=== PATIENT | male | born 1985 | race Caucasian/White ===

== ENCOUNTER 2018-11-22 11:14 | Inpatient (IN) | payer SELFPAY ==
[2018-11-22 11:14] VITALS: BP 142/85; PULSE 96; RESP 14; TEMP 36.7; O2SAT 97; BMI 43.6
[2018-11-22 11:56] LABS: Absolute Lymphocyte Count 2.52 X10^3/ul (0.83-4.51); Absolute Neutrophil Count 9.4 X10^3/uL (2.0-7.7); Basophil# 0.02 X10^3/uL; Basophil% 0.2 % (0-1); Eosinophil# 0.22 X10^3/uL; Eosinophils% 1.7 % (0-5); Hematocrit 43.7 % (40-54); Lymphocyte # 2.52 X10^3/ul (4.0); Mean Corpuscular Hgb 26.8 pg (27.0-32.0); Mean Corpuscular Volume 83.7 fL (80-94); Mean Platelet Vol. 9.8 fl (6.2-12.0); Monocyte# 1.03 X10^3/uL; Monocyte% 7.8 % (0-10); Neutrophil # 9.42 X10^3/uL (2.7-7.7); Neutrophil % 71.1 % (47-70); POSITIVE COUNT NO; POSITIVE DIFFERENTIAL NO; POSITIVE MORPHOLOGY NO; Platelet Count 256 K/mm3 (150-450); RBC Distribution Width CV 15.1 % (11.6-14.6); RBC Distribution Width SD 46.1 fl (35.1-43.9); Red Blood Count 5.22 M/mm3 (4.6-6.2); White Blood Count 13.2 K/mm3 (4.4-11.0)
[2018-11-22 12:11] LABS: Anion Gap 4 (5-15); BUN 15 mg/dL (7-18); BUN/Creat Ratio 15.8 RATIO (10-20); Calcium,Total 8.8 mg/dL (8.5-10.1); Chloride 107 mmol/L (98-107); Creatinine, Serum 0.95 mg/dL (0.70-1.30); EST Glomerular Filtration Rate 97 mL/min (>60); Est Glom Filt Rate - Afr Amer 117 mL/min (>60); Estimated Creatinine Clearance 128.59 ml/min; Glucose 129 mg/dL (74-106); Potassium 3.7 mmol/L (3.5-5.1); Sodium Level 140 mmol/L (136-145)
--- NOTE | 2018-11-22 13:26 | ED.VIS.GEN ---
History of Present Illness Chief Complaint: Cellulitis Associated Symptoms: 3-year-old male presents with left leg Narrative: 33-year-old male presents with what he describes as a pimple on his left leg anteriorly for the past week. This morning he developed erythema and warmth of his entire leg. It has gradually become worse since then. No associated fever. No history of diabetes. No previous history of cellulitis. Better with elevations. Past Medical History - Allergies and Home Meds Allergies/Adverse Reactions: Allergies No Known Allergies Allergy (Verified 11/22/18 11:17) Primary Care Physician: Care Physician,No Primary [Primary Care Provider] - Past Medical History: None Smoking Status: Current every day smoker Review of Systems General: Denies: Chills, Fever, Sweats Eyes: Denies: Visual changes - bilaterally, Diplopia ENT: Denies: Rhinorrhea, Sore throat Cardiovascular: Denies: Chest pain, Palpitations Respiratory: Denies: Dyspnea, Cough, Dyspnea on exertion Gastrointestinal: Denies: Abdominal pain, Nausea, Vomiting, Diarrhea, Melena, Hematochezia Genitourinary: Denies: Dysuria, Hematuria, Frequency Musculoskeletal: Denies: Back pain, Extremity Pain Skin: Reports: Rash, Wounds Neurological: Denies: Headache, Weakness, Numbness Physical Exam Vital Signs/Narrative: Vital Signs Temp Pulse Resp BP Pulse Ox 11/22/18 11:14 98.1 F 96 14 142/85 H 97 General: Well nourished, Well developed, No Acute Distress Head: Normocephalic, Atraumatic Eyes: Perrl, EOMI ENT: Moist mucous membranes, No rhinorrhea Neck: Supple, Nontender Cardiovascular: Regular rate, Regular rhythm, No murmurs Respiratory: No distress, CTA bilaterally, Chest nontender Abdomen: Soft, Nontender, Nondistended, Normal bowel sounds Back: Nontender, Normal Inspection Extremities: Nontender, No edema Skin: Rash, - - He has erythema and warmth noted from the distal thigh to his foot. There is a raised fluctuant area approximately 4 cm x 5 cm just distal to the left knee but not involving the joint. No streaks of lymphangitis. No overlying crepitus. The posterior aspect of his leg appears normal and this mostly only involves the anterior aspect. Neurological: Alert, Oriented x3, Cranial nerves II-XII grossly intact, Normal Strength, Normal Sensation Psychological: Normal affect, Normal Mood Diagnostic/Tx/Re-eval - Medical Decision Making He does have a slight leukocytosis. Glucose not significantly elevated. He has no history of diabetes. His cellulitis is fairly sizable, involving his entire left leg but sparing the foot. It extends just proximal to the knee. No associated streaks of lymphangitis. No proximal lymphadenopathy. No crepitus. He was outlined and observed here. No rapid progression to suggest necrotizing fasciitis. He did have a fairly localized raised and fluctuant area proximally. It is somewhat distal to the prepatellar bursa. It appeared to be an abscess. I obtained verbal informed consent and then anesthetized using 5 cc of lidocaine with epinephrine locally infiltrated. I then made a 3 cm x 3 cm cruciate incision using a #11 scalpel. I broke up loculations using a curved Julia forcep and irrigated the area using 50 cc of normal saline and a syringe. I expressed 10-15 cc of foul-smelling purulent material. I sent it for a culture and a rapid MRSA PCR. I then placed 1/4 inch drain packing approximately 6 cm. He tolerated it well. No immediate complications. Given the large size of his cellulitis, I do feel he meets criteria for hospitalization and IV antibiotics. He was treated with vancomycin and Zosyn here. I discussed the case with the hospitalist at the bedside. ED Disposition - Plan for ED Patient: Diagnosis: Left leg cellulitis, Abscess of left leg Referrals: Care Physician,No Primary [Primary Care Provider] -
--- NOTE | 2018-11-22 13:37 | RAD_ITS ---
STUDY: X-RAY - LEFT TIBIA AND FIBULA REASON FOR EXAM: Male, 33 years old. Lower extremity swelling TECHNIQUE: 2 view(s) of the tibia and fibula were obtained. COMPARISON: None. FINDINGS: Normal visualized tibia. Normal visualized fibula. Knee joint an ankle joint are in normal alignment. No significant degenerative change. Diffuse subcutaneous edema of the lower leg. No subcutaneous gas loculation or ulceration. RAD/Tibia & Fibula 2 Views IMPRESSION: 1. Left lower extremity edema 2. No underlying bony or joint abnormality. Electronically Signed: Joby Mason MD at 4:55 EDT Tel , Service support ,
--- NOTE | 2018-11-22 13:43 | HP.PCM_ITS ---
Problem List (1) Left leg cellulitis Status: Acute (2) Abscess of left leg Status: Acute History of Present Illness Date of Admission: 11/22/18 Chief Complaint: Left leg cellulitis for 3 days The patient is a 33 year old M with no significant past medical history came to ED with left leg swelling, pain and tenderness for last 3 days. This started with a small pimple in anterior part of left leg, below knee joint and then shape of swelling, erythema, pain and then spread downwards up to ankle joint. Patient denies numbness, tingling or paresthesia or problem in bending the knee joint or locking sensation. He denies fever/chills. He fell down on left knee in August but did not had fracture/dislocation or procedure done. He took Motrin at home and went to urgent care from where he was sent to ED. [] He denies history of hypertension or diabetes mellitus type 2. Past Medical History Allergies No Known Allergies Allergy (Verified 11/22/18 11:17) Home Medications: Ambulatory Orders Medication Instructions Recorded Ibuprofen 800 mg PO BID 11/22/18 Smoking Status: Current every day smoker - *Family History Paternal History Items: Hypertension Review of Systems Constitutional: Denies: Chills, Fever, Weight Change HEENT: Denies: Head Aches, Sinus Congestion, Sinus Drainage Cardiovascular: Denies: Chest Pain, Palpitations Respiratory: Denies: Cough, Shortness of breath at rest, Sputum production Gastrointestinal: Denies: Abdominal Pain, Nausea, Vomiting Genitourinary: Denies: Dysuria Musculoskeletal: Reports: Leg Pain, Muscle pain. Denies: Joint Pain, Joint Tenderness Skin: Reports: Rash, Skin Changes, - - There is an abscess anteriorly, distal to knee joint which was drained in ED. Denies: Wounds Neurological: Denies: Numbness, Tingling, Focal weakness Psychiatric: Denies: Anxiety, Depression, Homicidal Ideations, Suicidal Ideations Hematologic/ Lymphatic: Denies: Easy Bruising, Easy Bleeding VTE Information - Inpt Only VTE Present on Admission: No VTE Mechan Device Prophylaxis: None VTE Pharm Prophylaxis ordered?: Yes Patient Problems: Active and Suspected Problems Left leg cellulitis (Acute) Abscess of left leg (Acute) - Physical Exam General: Alert, Oriented x3, Cooperative HEENT: Atraumatic, PERRLA, EOMI, Normocephalic Oral: Moist Mucosa Neck: Supple, No JVD, Negative Carotid Bruits Lungs: Clear to auscultation, No rhonchi, No wheeze, No rales, Diminished - Air entry is diminished bilaterally probably secondary to obesity Cardiovascular: Regular rate, Regular Rhythm, Normal S1, Normal S2, No murmurs Abdomen: Bowel Sounds Present, Soft, Non Tender Extremities: No edema, Capillary Refill Less than 3 Seconds Skin: Skin Tear - Diffuse erythematous rash from knee joint to ankle joint with induration and swelling, Incision - Patient had incision and drainage of abscess of 4 x 5 cm, distal to left knee joint and prepatellar bursa. It seems is not involving the knee joint. Musculoskeletal: No Tenderness to Palpation of Joints or Extremities, - - The patient is able to flex and extend the knee. Lymphatic: No Cervical, Supraclavicular, or Inguinal Adenopathy Neurological: Cranial nerves II-XII grossly intact, Deep Tendon Reflexes 2+/4 and Symmetrical, Neuro grossly intact Psych/Mental Status: Normal Affect, Appropriate Vital Signs Temp Pulse Resp BP Pulse Ox 98.1 F 96 14 142/85 H 97 11/22/18 11:14 11/22/18 11:14 11/22/18 11:14 11/22/18 11:14 11/22/18 11:14 Oxygen Delivery Method Room Air Weight: 340 lb Body Mass Index (BMI) 43.6 Laboratory Tests Past 24 Hrs 11/22/18 11/22/18 11/22/18 11:40 11:40 13:15 WBC 13.2 H RBC 5.22 Hgb 14.0 Hct 43.7 MCV 83.7 MCH 26.8 L MCHC 32.0 RDW 15.1 H RDW Differential 46.1 H Plt Count 256 MPV 9.8 Immature Gran % (Auto) 0.200 Neut % (Auto) 71.1 H Lymph % (Auto) 19.0 [place] % (Auto) 7.8 Eos % (Auto) 1.7 Baso % (Auto) 0.2 Absolute Neuts (auto) 9.4 H Absolute Lymphs (auto) 2.52 Total Counted Not Reportable Sodium 140 Potassium 3.7 Chloride 107 Carbon Dioxide 29.0 Anion Gap 4 L BUN 15 Creatinine 0.95 Estim Creat Clear Calc 128.59 Est GFR (MDRD) Af Amer 117 Est GFR (MDRD) Non-Af 97 BUN/Creatinine Ratio 15.8 Glucose 129 H Calcium 8.8 S.aureus Protein A PCR Pending MRSA (PCR) Pending Assessment/Plan All Active Problems Left leg cellulitis (Acute) Abscess of left leg (Acute) The patient is a 33 year old M with no significant past medical history came to ED with left leg swelling, pain and tenderness for last 3 days. This started with a small pimple in anterior part of left leg, below knee joint and then shape of swelling, erythema, pain and then spread downwards up to ankle joint. Patient denies numbness, tingling or paresthesia or problem in bending the knee joint or locking sensation. He denies fever/chills. He fell down on left knee in August but did not had fracture/dislocation or procedure done. He took Motrin at home and went to urgent care from where he was sent to ED. [] He denies history of hypertension or diabetes mellitus type 2. 1. Left leg cellulitis with abscess distal to knee joint status post incision and drainage in ED: Patient is being admitted on regular MedSurg floor. Started on IV vancomycin in the ED. We will change to IV cefazolin 1 g every 8 hourly. Abscess fluid has been sent for culture including MRSA. Blood cultures x2 ordered. Left lower extremity elevation. Patient has leukocytosis. CBC and BMP tomorrow a.m. Left leg tibia-fibula x-ray ordered. Anti-Inflammatory pain control. 2. Hyperglycemia: BMP shows glucose 129. A1c tomorrow a.m. 3. Morbid obesity: Weight reduction counseling done. Code Visit Inpatient E&M: 88768 Init Hosp L3
[2018-11-22 14:16] VITALS: BMI 44.1; BMI 44.2
--- NOTE | 2018-11-22 14:25 | NURSING ---
Dr. Chilel in to see pt- states that he was asked by pt's brother to check in on pt. Xrays in progress at bedside. Dr. Chilel states that dry dressing should be placed on and that ok to leave packing for 2 days and then may not need anymore following that.
[2018-11-22 14:30] VITALS: BP 142/88; PULSE 81; RESP 18; TEMP 36.8; O2SAT 100
--- NOTE | 2018-11-22 14:40 | NURSING ---
pt did not have a flu vaccine- states he does not get them.
[2018-11-22] MEDS: 0.9% Normal Saline 1,000 ML 75 ML IV (15:04)
[2018-11-22] MEDS: Ibuprofen 600 MG Tablet PO (15:13)
[2018-11-22] MEDS: Famotidine 20 MG Tablet PO (15:14)
[2018-11-22] MEDS: Enoxaparin 40 MG/0.4 ML Syringe SC (15:14)
[2018-11-22 15:23] LABS: M R Staph aureus DNA By PCR Negative (Negative); Probe Check PASS; Specimen Processing Control PASS; Staph aureus DNA By PCR POSITIVE (Negative)
[2018-11-22] MEDS: Cefazolin 1 GM/50 ML BAG IV ×2 (16:30→22:05)
[2018-11-22 20:20] VITALS: BP 151/73; PULSE 88; RESP 14; TEMP 37.1; O2SAT 98
[2018-11-23 02:43] VITALS: BP 143/62; PULSE 87; RESP 14; TEMP 37.4; O2SAT 97
[2018-11-23] MEDS: Acetaminophen 325 MG Tablet 650 MG PO (02:46)
[2018-11-23] MEDS: Ibuprofen 600 MG Tablet PO ×3 (05:13→22:22)
[2018-11-23] MEDS: Cefazolin 1 GM/50 ML BAG IV ×3 (05:13→22:22)
[2018-11-23] MEDS: 0.9% Normal Saline 1,000 ML 75 ML IV ×2 (05:14→17:49)
[2018-11-23 08:06] VITALS: BP 127/68; PULSE 75; RESP 16; TEMP 36.5; O2SAT 98
[2018-11-23 08:10] VITALS: PULSE 76
[2018-11-23 08:13] LABS: Absolute Lymphocyte Count 2.64 X10^3/ul (0.83-4.51); Absolute Neutrophil Count 8.5 X10^3/uL (2.0-7.7); Basophil# 0.04 X10^3/uL; Basophil% 0.3 % (0-1); Eosinophil# 0.39 X10^3/uL; Hematocrit 39.6 % (40-54); Hemoglobin 12.3 g/dl (13.0-16.5); Lymphocyte # 2.64 X10^3/ul (4.0); Lymphocyte % 20.1 % (19-41); Mean Corp Hgb Conc 31.1 g/gl (32-36); Mean Corpuscular Hgb 26.9 pg (27.0-32.0); Mean Corpuscular Volume 86.5 fL (80-94); Mean Platelet Vol. 9.8 fl (6.2-12.0); Monocyte# 1.55 X10^3/uL; Monocyte% 11.8 % (0-10); Neutrophil # 8.51 X10^3/uL (2.7-7.7); Neutrophil % 64.6 % (47-70); POSITIVE DIFFERENTIAL YES; Platelet Count 248 K/mm3 (150-450); RBC Distribution Width CV 15.2 % (11.6-14.6); RBC Distribution Width SD 48.5 fl (35.1-43.9); Red Blood Count 4.58 M/mm3 (4.6-6.2); White Blood Count 13.2 K/mm3 (4.4-11.0)
[2018-11-23 08:14] LABS: Differential Indicated SCAN CRITERIA MET; POSITIVE COUNT NO; POSITIVE MORPHOLOGY NO
[2018-11-23 08:18] LABS: Anion Gap 5 (5-15); BUN 13 mg/dL (7-18); BUN/Creat Ratio 14.2 RATIO (10-20); Calcium,Total 8.5 mg/dL (8.5-10.1); Chloride 111 mmol/L (98-107); Creatinine, Serum 0.92 mg/dL (0.70-1.30); EST Glomerular Filtration Rate 101 mL/min (>60); Est Glom Filt Rate - Afr Amer 122 mL/min (>60); Estimated Creatinine Clearance 132.78 ml/min; Glucose 99 mg/dL (74-106); Potassium 3.9 mmol/L (3.5-5.1); Sodium Level 142 mmol/L (136-145)
[2018-11-23 08:30] LABS: Differential Comment SCANNED
--- NOTE | 2018-11-23 08:39 | PCM.PN.SRG ---
Patient Problems: Active and Suspected Problems Left leg cellulitis (Acute) Abscess of left leg (Acute) Subjective: I saw the patient this morning and yesterday afternoon. The patient reports he is not having pain as long as he is not standing on it. - Physical Exam General: Alert, Oriented x3 Neck: No JVD Extremities: - - Cellulitis receding in the left lower extremity. Purulent drainage continues Musculoskeletal: No Muscle Wasting Vital Signs Temp Pulse Resp BP Pulse Ox 97.7 F L 75 16 127/68 H 98 11/23/18 08:06 11/23/18 08:06 11/23/18 08:06 11/23/18 08:06 11/23/18 08:06 Oxygen Delivery Method Room Air Weight: 344 lb 5.793 oz Body Mass Index (BMI) 44.1 Intake and Output for Last 24 Hours 11/21/18 11/22/18 11/23/18 23:59 23:59 23:59 Intake Total 1093 / 1093 1622 / 1622 Balance 1093 / 1093 1622 / 1622 Microbiology Past 72 Hours 11/22/18 13:15 Gram Stain - Final Wound - Leg, Left Laboratory Tests Past 24 Hrs 11/22/18 11/22/18 11/22/18 11:40 11:40 13:15 WBC 13.2 H RBC 5.22 Hgb 14.0 Hct 43.7 MCV 83.7 MCH 26.8 L MCHC 32.0 RDW 15.1 H RDW Differential 46.1 H Plt Count 256 MPV 9.8 Immature Gran % (Auto) 0.200 Neut % (Auto) 71.1 H Lymph % (Auto) 19.0 [place] % (Auto) 7.8 Eos % (Auto) 1.7 Baso % (Auto) 0.2 Absolute Neuts (auto) 9.4 H Absolute Lymphs (auto) 2.52 Total Counted Not Reportable Differential Comment Sodium 140 Potassium 3.7 Chloride 107 Carbon Dioxide 29.0 Anion Gap 4 L BUN 15 Creatinine 0.95 Estim Creat Clear Calc 128.59 Est GFR (MDRD) Af Amer 117 Est GFR (MDRD) Non-Af 97 BUN/Creatinine Ratio 15.8 Glucose 129 H Hemoglobin A1c Calcium 8.8 S.aureus Protein A PCR POSITIVE H MRSA (PCR) Negative 11/23/18 11/23/18 11/23/18 06:47 06:47 06:47 WBC 13.2 H RBC 4.58 L Hgb 12.3 L Hct 39.6 L MCV 86.5 MCH 26.9 L MCHC 31.1 L RDW 15.2 H RDW Differential 48.5 H Plt Count 248 MPV 9.8 Immature Gran % (Auto) 0.200 Neut % (Auto) 64.6 Lymph % (Auto) 20.1 [place] % (Auto) 11.8 H Eos % (Auto) 3.0 Baso % (Auto) 0.3 Absolute Neuts (auto) 8.5 H Absolute Lymphs (auto) 2.64 Total Counted Not Reportable Differential Comment SCANNED Sodium 142 Potassium 3.9 Chloride 111 H Carbon Dioxide 26.0 Anion Gap 5 BUN 13 Creatinine 0.92 Estim Creat Clear Calc 132.78 Est GFR (MDRD) Af Amer 122 Est GFR (MDRD) Non-Af 101 BUN/Creatinine Ratio 14.2 Glucose 99 Hemoglobin A1c 6.0 Calcium 8.5 S.aureus Protein A PCR MRSA (PCR) Medical Necessity - Tobacco Use Smoking Status: Current every day smoker Assessment/Plan All Active Problems Left leg cellulitis (Acute) Abscess of left leg (Acute) 33-year-old male with left lower extremity abscess and cellulitis 1. I examined the patient this morning and yesterday. There is less cellulitis today and it is receding from the margins. He still has significant cellulitis and he is still having purulent drainage from the wound. I will plan to change the packing tomorrow and irrigated and see how he responds to the IV antibiotics. Culture does show staph. Patient is not febrile and his white count is stable. Continue IV antibiotics. Jimenez Chilel MD Pager: [facility] [address] [place] [address] [facility] [place], [address] [place] [address] Office:
[2018-11-23] MEDS: Enoxaparin 40 MG/0.4 ML Syringe SC (10:24)
--- NOTE | 2018-11-23 11:05 | CM.UR ---
RN CM Assessment Met face to face with patient for initial transition planning/care coordination assessment. Introduced myself and my role. Verb understanding and agreement for assessment. Presentation: Had pimple on thigh-->picked it-->progressed into cellulitis. PCP: none Specialists: none Preferred Pharmacy: [facility] Insurance: none. Recently changed jobs and had a 90 day wait. States he'll work out a payment plan. Prescription Benefit: none LNOK: Mother Hui Home: Split level. No problems with accessing any area of home. ADLs: independent with all ADLs. Transportation: Drives self DME: None. States probably has some out in barn but doesn't know specifically. SNF/HHC: Denies Passport/waiver navigating officer: Denies Advance Directives: None, booklet given. DC PLAN: Home. Unsure of plan regarding antibiotics. discussed worse case scenario--dc'd home on IVAB. States he would learn how to do them. Wants to return to work asap. Marychuy Abbott RN, CCM.
[2018-11-23 13:58] VITALS: BP 146/83; PULSE 77; RESP 16; TEMP 36.9; O2SAT 97
--- NOTE | 2018-11-23 16:09 | PN_ITS ---
Patient Problems: Active and Suspected Problems Left leg cellulitis (Acute) Abscess of left leg (Acute) Subjective: The patient is a 33-year-old male with no significant past medical history other than morbid obesity and tobacco dependence who presented to the emergency department at [facility] on 11/22/2018 complaining of left leg swelling associated with pain and redness for the preceding 3 days. Vital signs of presentation to the emergency room were temperature 98.1, pulse rate 96, blood pressure 142/85, respiratory rate 14 and he was 97-100% saturated on room air. White blood cell count was elevated at 13.2 with 71% neutrophils. Hemoglobin and platelets were within normal limits. BMP was unremarkable. Random glucose was 129. A PCR on wound drainage was positive for staph aureus but negative for MRSA. Hemoglobin A1c is 6.0. He had an I&D in the ED. He was admitted to the hospital and started on Ancef. Dr. Chilel was consulted. All events of the past 24 hours of been reviewed. Afebrile since admission Vital signs are stable All lab was personally reviewed. The white blood cell count is still 13.2 with 64.6% neutrophils. Hemoglobin is 12.3 following hydration. Platelets are still within normal limits. The wound culture has 3+ staph aureus in the blood cultures are negative to date. A plain x-ray of the left lower extremity shows no fracture or dislocation. There is diffuse subcutaneous edema with no gas. Patient states the pain is adequately controlled. He has been walking and sitting in a chair with his legs dependent most of the day and the left leg is significantly swollen. There is erythema of the left leg and the I&D site is in the upper leg near the tibial plateau. He does not recall injuring the leg. He works pouring concrete and driving the truck. His legs are sometimes swollen. - Physical Exam General: Alert, Oriented x3, Cooperative, No apparent distress, Well developed, Well nourished Lungs: Clear to auscultation Cardiovascular: Regular rate, Regular Rhythm, Normal S1, Normal S2 Abdomen: Bowel Sounds Present, Soft, Non Tender, Non-Distended, Obese Extremities: - - I&D site is just distal to the L tibial plateau. Small amount of purulent DC. Drain is in place but has been partially pulled out. There is erythema surrounding the wound and increased warmth to touch. Patient states it looks better than it did prior to the I&D. Psych/Mental Status: Normal Affect, Appropriate Vital Signs Temp Pulse Resp BP Pulse Ox 98.5 F 77 16 146/83 H 97 11/23/18 13:58 11/23/18 13:58 11/23/18 13:58 11/23/18 13:58 11/23/18 13:58 Oxygen Delivery Method Room Air Weight: 344 lb 5.793 oz Body Mass Index (BMI) 44.1 Intake and Output for Last 24 Hours 11/21/18 11/22/18 11/23/18 23:59 23:59 23:59 Intake Total 1093 / 1093 2356 / 2356 Balance 1093 / 1093 2356 / 2356 Microbiology Past 72 Hours 11/22/18 13:15 Gram Stain - Final Wound - Leg, Left Wound Culture - Preliminary Staphylococcus aureus Laboratory Tests Past 24 Hrs 11/23/18 11/23/18 11/23/18 06:47 06:47 06:47 WBC 13.2 H RBC 4.58 L Hgb 12.3 L Hct 39.6 L MCV 86.5 MCH 26.9 L MCHC 31.1 L RDW 15.2 H RDW Differential 48.5 H Plt Count 248 MPV 9.8 Immature Gran % (Auto) 0.200 Neut % (Auto) 64.6 Lymph % (Auto) 20.1 [place] % (Auto) 11.8 H Eos % (Auto) 3.0 Baso % (Auto) 0.3 Absolute Neuts (auto) 8.5 H Absolute Lymphs (auto) 2.64 Total Counted Not Reportable Differential Comment SCANNED Sodium 142 Potassium 3.9 Chloride 111 H Carbon Dioxide 26.0 Anion Gap 5 BUN 13 Creatinine 0.92 Estim Creat Clear Calc 132.78 Est GFR (MDRD) Af Amer 122 Est GFR (MDRD) Non-Af 101 BUN/Creatinine Ratio 14.2 Glucose 99 Hemoglobin A1c 6.0 Calcium 8.5 Medical Necessity - Tobacco Use Smoking Status: Current every day smoker Assessment/Plan All Active Problems Left leg cellulitis (Acute) Abscess of left leg (Acute) Impressions 1. Cellulitis of the left lower extremity with abscess - secondary to methicillin sensitive staph aureus 2. Suspected venous insufficiency 3. Morbid obesity 4. Tobacco dependence Continue Ancef I instructed him to keep the left lower extremity elevated as much as possible to decrease edema Continue Lovenox for DVT prophylaxis Discontinue IV fluids appreciate Dr. Chilel's input. Code Visit Inpatient E&M: 99580 Subs Hosp L2
[2018-11-23 20:23] VITALS: BP 137/54; PULSE 88; RESP 16; TEMP 36.9; O2SAT 100
[2018-11-23] MEDS: Famotidine 20 MG Tablet PO (22:22)
[2018-11-23] MEDS: 0.9% NaCl Peripheral Flush Adult/Peds IV (22:27)
[2018-11-24 02:24] VITALS: BP 114/60; PULSE 74; RESP 16; TEMP 36.4; O2SAT 97
[2018-11-24] MEDS: Cefazolin 1 GM/50 ML BAG IV ×3 (06:05→21:20)
[2018-11-24] MEDS: Ibuprofen 600 MG Tablet PO ×3 (06:05→21:20)
[2018-11-24] MEDS: 0.9% NaCl Peripheral Flush Adult/Peds IV ×2 (06:05→21:20)
[2018-11-24 07:24] VITALS: BP 132/83; PULSE 66; RESP 16; TEMP 36.6; O2SAT 97
--- NOTE | 2018-11-24 07:44 | PN.SURG_ITS ---
Patient Problems: Active and Suspected Problems Left leg cellulitis (Acute) Abscess of left leg (Acute) Subjective: Patient reports he is now able to walk on his lower extremity which was not the case when he was admitted. He does feel like it is slightly improved. - Physical Exam General: Alert, Oriented x3 Lungs: Normal air movement Cardiovascular: Regular rate, Regular Rhythm Extremities: - - Left lower extremity with receding cellulitis and purulent drainage from an incision Musculoskeletal: No Muscle Wasting Vital Signs Temp Pulse Resp BP Pulse Ox 97.8 F 66 16 132/83 H 97 11/24/18 07:24 11/24/18 07:24 11/24/18 07:24 11/24/18 07:24 11/24/18 07:24 Oxygen Delivery Method Room Air Weight: 344 lb 5.793 oz Body Mass Index (BMI) 44.1 Intake and Output for Last 24 Hours 11/22/18 11/23/18 11/24/18 23:59 23:59 23:59 Intake Total 1093 / 1093 3383 / 3383 990 / 990 Balance 1093 / 1093 3383 / 3383 990 / 990 Microbiology Past 72 Hours 11/22/18 14:50 Blood Culture - Preliminary Blood Culture (Wb) - Right Forearm No growth in 48 hours. 11/22/18 14:40 Blood Culture - Preliminary Blood Culture (Wb) - Anticubital Right No growth in 48 hours. 11/22/18 13:15 Gram Stain - Final Wound - Leg, Left Wound Culture - Preliminary Staphylococcus aureus Laboratory Tests Past 24 Hrs 11/23/18 11/23/18 11/23/18 06:47 06:47 06:47 WBC 13.2 H RBC 4.58 L Hgb 12.3 L Hct 39.6 L MCV 86.5 MCH 26.9 L MCHC 31.1 L RDW 15.2 H RDW Differential 48.5 H Plt Count 248 MPV 9.8 Immature Gran % (Auto) 0.200 Neut % (Auto) 64.6 Lymph % (Auto) 20.1 [place] % (Auto) 11.8 H Eos % (Auto) 3.0 Baso % (Auto) 0.3 Absolute Neuts (auto) 8.5 H Absolute Lymphs (auto) 2.64 Total Counted Not Reportable Differential Comment SCANNED Sodium 142 Potassium 3.9 Chloride 111 H Carbon Dioxide 26.0 Anion Gap 5 BUN 13 Creatinine 0.92 Estim Creat Clear Calc 132.78 Est GFR (MDRD) Af Amer 122 Est GFR (MDRD) Non-Af 101 BUN/Creatinine Ratio 14.2 Glucose 99 Hemoglobin A1c 6.0 Calcium 8.5 Medical Necessity - Tobacco Use Smoking Status: Current every day smoker Assessment/Plan All Active Problems Left leg cellulitis (Acute) Abscess of left leg (Acute) 33-year-old male with left lower extremity infection and cellulitis 1. Patient has cellulitis which seems to be slightly improving but he still has significant cellulitis and edema. There is still purulent drainage coming from his I&D site. I removed his packing and irrigated the wound and repacked it. He does report that he is able to walk on it which she was unable to do when he first came in. CBC is pending. Patient likely will need to stay 1 more day for IV antibiotics. I do not feel any more purulence under the surrounding skin or fluctuance in that area requiring further I&D. Continue packing changes. Cultures of fluid came back positive for MSSA. Jimenez Chilel MD Pager: [facility] [address] [place] [address], [address] [place] [address] Office:
[2018-11-24 08:17] LABS: Absolute Lymphocyte Count 1.98 X10^3/ul (0.83-4.51); Absolute Neutrophil Count 6.3 X10^3/uL (2.0-7.7); Basophil# 0.03 X10^3/uL; Basophil% 0.3 % (0-1); Eosinophil# 0.46 X10^3/uL; Eosinophils% 4.7 % (0-5); Hematocrit 40.2 % (40-54); Hemoglobin 12.6 g/dl (13.0-16.5); Lymphocyte # 1.98 X10^3/ul (4.0); Lymphocyte % 20.3 % (19-41); Mean Corp Hgb Conc 31.3 g/gl (32-36); Mean Corpuscular Hgb 26.8 pg (27.0-32.0); Mean Corpuscular Volume 85.5 fL (80-94); Mean Platelet Vol. 9.9 fl (6.2-12.0); Monocyte# 0.97 X10^3/uL; Monocyte% 9.9 % (0-10); Neutrophil # 6.29 X10^3/uL (2.7-7.7); Neutrophil % 64.5 % (47-70); POSITIVE COUNT NO; POSITIVE DIFFERENTIAL NO; POSITIVE MORPHOLOGY NO; Platelet Count 265 K/mm3 (150-450); RBC Distribution Width CV 15.1 % (11.6-14.6); RBC Distribution Width SD 46.7 fl (35.1-43.9); White Blood Count 9.8 K/mm3 (4.4-11.0)
[2018-11-24] MEDS: Famotidine 20 MG Tablet PO ×2 (09:23→21:20)
[2018-11-24] MEDS: Enoxaparin 40 MG/0.4 ML Syringe SC (09:23)
[2018-11-24 11:48] VITALS: BP 153/68; PULSE 60; RESP 16; TEMP 36.3; O2SAT 97
[2018-11-24 11:51] LABS: Bedside Glucose 122 mg/dL (70-110)
[2018-11-24 15:12] VITALS: BP 145/64; PULSE 84; RESP 16; TEMP 36.9; O2SAT 98
--- NOTE | 2018-11-24 18:40 | PN_ITS ---
Patient Problems: Active and Suspected Problems Left leg cellulitis (Acute) Abscess of left leg (Acute) Subjective: Day #3 antibiotics-cefazolin Afebrile Vital signs are stable White blood cell count today is down to 9.8 with a normal differential. Hemoglobin is stable to 12.6 and platelets are within normal limits. He has been ambulating in the halls today and when he is not walking he tries to keep his leg up. There is still significant swelling of the left lower extremity. When the dressing was changed by Dr. Chilel today there was still some purulent discharge and he recommends keeping the patient for another day of IV antibiotics. He has been getting Motrin every 8 hours and has not required any additional pa in medication over the past 24 hours. - Physical Exam General: Alert, Cooperative Lungs: Clear to auscultation Cardiovascular: Regular rate, Regular Rhythm, Normal S1, Normal S2 Abdomen: Bowel Sounds Present, Soft, Non Tender, Non-Distended Extremities: Edema - Of the left lower extremity. I did not undress the wound, please see Dr. Chilel his dictation for the description. He continues to have erythema of the left lower extremity distal to the dressing. The warmth to touch has decreased and he is able to walk without pain now. Skin: No rashes Vital Signs Temp Pulse Resp BP Pulse Ox 98.4 F 84 16 145/64 H 98 11/24/18 15:12 11/24/18 15:12 11/24/18 15:12 11/24/18 15:12 11/24/18 15:12 Oxygen Delivery Method Room Air Weight: 344 lb 5.793 oz Body Mass Index (BMI) 44.1 Intake and Output for Last 24 Hours 11/22/18 11/23/18 11/24/18 23:59 23:59 23:59 Intake Total 1093 / 1093 3383 / 3383 2290 / 2290 Balance 1093 / 1093 3383 / 3383 2290 / 2290 Microbiology Past 72 Hours 11/22/18 13:15 Gram Stain - Final Wound - Leg, Left Wound Culture - Final Staphylococcus aureus 11/22/18 14:50 Blood Culture - Preliminary Blood Culture (Wb) - Right Forearm No growth in 48 hours. 11/22/18 14:40 Blood Culture - Preliminary Blood Culture (Wb) - Anticubital Right No growth in 48 hours. Laboratory Tests Past 24 Hrs 11/24/18 07:55 WBC 9.8 RBC 4.70 Hgb 12.6 L Hct 40.2 MCV 85.5 MCH 26.8 L MCHC 31.3 L RDW 15.1 H RDW Differential 46.7 H Plt Count 265 MPV 9.9 Immature Gran % (Auto) 0.300 Neut % (Auto) 64.5 Lymph % (Auto) 20.3 [place] % (Auto) 9.9 Eos % (Auto) 4.7 Baso % (Auto) 0.3 Absolute Neuts (auto) 6.3 Absolute Lymphs (auto) 1.98 Total Counted Not Reportable POC Glucose 11/24/18 11:35 POC Glucose 122 H Medical Necessity - Tobacco Use Smoking Status: Current every day smoker Assessment/Plan All Active Problems Left leg cellulitis (Acute) Abscess of left leg (Acute) Impressions 1. Cellulitis of the left lower extremity with abscess - secondary to methicillin sensitive staph aureus 2. Suspected venous insufficiency 3. Morbid obesity 4. Tobacco dependence Continue Ancef Continue the Motrin Elevate the Left LE Probable DC tomorrow on Duricef Code Visit Inpatient E&M: 61267 Subs Hosp L1
[2018-11-24 21:04] VITALS: BP 133/65; PULSE 81; RESP 16; TEMP 36.5; O2SAT 100
[2018-11-25 02:55] VITALS: BP 118/54; PULSE 75; RESP 16; TEMP 36.6; O2SAT 95
[2018-11-25] MEDS: Ibuprofen 600 MG Tablet PO (05:18)
[2018-11-25] MEDS: 0.9% NaCl Peripheral Flush Adult/Peds IV (05:19)
[2018-11-25] MEDS: Cefazolin 1 GM/50 ML BAG IV (05:19)
[2018-11-25 08:21] VITALS: BP 151/87; PULSE 81; RESP 18; TEMP 36.6; O2SAT 98
[2018-11-25] MEDS: Enoxaparin 40 MG/0.4 ML Syringe SC (08:27)
[2018-11-25] MEDS: Famotidine 20 MG Tablet PO (08:27)
--- NOTE | 2018-11-25 08:32 | PN.SURG_ITS ---
Patient Problems: Active and Suspected Problems Left leg cellulitis (Acute) Abscess of left leg (Acute) Subjective: Patient seems to be improving and he reports that his leg feels normal. - Physical Exam General: Alert, Oriented x3, Cooperative Neck: No JVD Abdomen: Soft, Non Tender, Non-Distended Extremities: - - Less cellulitis. No purulent drainage. Vital Signs Temp Pulse Resp BP Pulse Ox 97.9 F 81 18 151/87 H 98 11/25/18 08:21 11/25/18 08:21 11/25/18 08:21 11/25/18 08:21 11/25/18 08:21 Oxygen Delivery Method Room Air Weight: 344 lb 5.793 oz Body Mass Index (BMI) 44.1 Intake and Output for Last 24 Hours 11/23/18 11/24/18 11/25/18 23:59 23:59 23:59 Intake Total 3383 / 3383 2290 / 2290 1230 / 1230 Balance 3383 / 3383 2290 / 2290 1230 / 1230 Microbiology Past 72 Hours 11/22/18 13:15 Gram Stain - Final Wound - Leg, Left Wound Culture - Final Staphylococcus aureus 11/22/18 14:50 Blood Culture - Preliminary Blood Culture (Wb) - Right Forearm No growth in 48 hours. 11/22/18 14:40 Blood Culture - Preliminary Blood Culture (Wb) - Anticubital Right No growth in 48 hours. POC Glucose 11/24/18 11:35 POC Glucose 122 H Medical Necessity - Tobacco Use Smoking Status: Current every day smoker Assessment/Plan All Active Problems Left leg cellulitis (Acute) Abscess of left leg (Acute) 33-year-old male with cellulitis and abscess of the left lower extremity 1. Patient's cellulitis seems to be receding nicely. There is no more cellulitis in the posterior calf area. When I press around the drainage area there was no purulence coming out. I would recommend supplying the patient with packing and asking him to continue packing the wound once a day. 2. If the patient is discharged today I would like him to see me later this week to ensure that things are continuing to improve. He would likely go home on oral antibiotics. Cultures show MSSA. Jimenez Chilel MD Pager: [facility] [address] [place] [address], [address] [place] [phone] Office:
--- NOTE | 2018-11-25 08:39 | DCINST_ITS ---
- Discharge Diagnoses Current Active Problems: Current Active and Chronic Problems Left leg cellulitis (Acute) Abscess of left leg (Acute) You will use the following diet at home:: Other - [id number] calorie diet rich in lean protein Your food should be the consistency of: Regular Your liquids should be the consistency of: Regular/Thin Discharge Activity: May not drive while taking narcotic pain medications., - - [place] will need to keep the Left leg elevated as much as possible for the next week Return to work on:: 12/02/18 May resume sexual activity in: No Restrictions Weight Bearing Status: Full weight bearing Keep extremity elevated above heart level: Left Leg Call your doctor if your incision/area has: Sudden Increased Bleeding, Increased Pain/ Swelling, Increased Redness, Foul Smelling Discharge Call your doctor if you observe: Fever of 101 or Higher, Uncontrolled pain, - - Call your PCP if severe diarrhea ( > 5 stools a day), painful sores in the mouth, painful swallowing, rash or itching. Taking a probiotic such as Lactobacillus or Kefir can help with loose stools while taking antibiotics. Instructions: Losing Weight, Weight Management: Getting Started, Weight Management: Healthy Eating, Weight Management: Fact and Fiction, Finding Your [place] Weight Additional Instructions: Your blood sugars are mildly elevated. We checked a HGBA1C which is a test that averages what your blood sugars have been over the past 3 months and you are what we call glucose intolerant. This means that the insulin released by your body in response to what you eat is not quite handling the blood sugar normally and it is high. This is the first step to developing diabetes. If you quit drinking regular soda you will lose weight and the blood sugar will come down. Exercise helps to bring the blood sugar down and it will also help you lose weight. Find some activity/exercise that you can do with your girlfriend so it will be fun and you will be more likely to do it.....exercise should be fun and relaxing or you will not stick with it. Smoking and diabetes are both BIG risk factors for heart disease. I recommend that you try and quit smoking. We have a program at the hospital for smoking cessation. It is run by the respiratory therapists and all you have to do is call the hospital and ask to speak to the smoking cessation coordinator. There are medications that can help you quit smoking also......you could discuss this with your family doctor. Pending Tests on Discharge: none Allergies/Adverse Reactions: Allergies No Known Allergies Allergy (Verified 11/22/18 11:17) Medications to take at Discharge Cefadroxil 1 gm PO BID #12 tab 11/25/18 Ibuprofen [Motrin] 600 mg PO Q8 #30 tab 11/25/18 Oxycodone HCl/Acetaminophen [Percocet 5/325] 1 - 2 tab PO Q6H PRN PRN 7 Days #25 tab 11/25/18 The following prescriptions were given: Oxycodone HCl/Acetaminophen [Percocet 5/325] 1 - 2 tab PO Q6H PRN PRN 7 Days #25 tab PRN Reason: Pain Ibuprofen [Motrin] 600 mg PO Q8 #30 tab Cefadroxil 1 gm PO BID #12 tab Primary Care Physician: Care Physician,No Primary [Primary Care Provider] - Test Results: Test results from this visit will be discussed in further detail at your follow- up appointment, if applicable. Please Follow Up With: Jimenez Chilel MD When: towards the end of the week
--- NOTE | 2018-11-25 08:40 | DS.PCM_ITS ---
Discharge Date and Diagnosis Date of Admission: 11/22/18 Date of Discharge: 11/25/18 - Primary Discharge Diagnosis Active and Suspected Problems Left leg cellulitis (Acute) Abscess of left leg (Acute) - Secondary Discharge Diagnosis Morbid obesity Tobacco dependence high normal HGBA1C Hospital Course and Treatment Imaging Results: Clinical Impression(s) from Imaging Studies Tibia/Fibula X-Ray 11/22/18 13:37 IMPRESSION: 1. Left lower extremity edema 2. No underlying bony or joint abnormality. Electronically Signed: Joby Mason MD at 4:55 EDT Tel , Service support , Microbiology 11/22/18 13:15 Wound - Leg, Left Gram Stain - Final 11/22/18 13:15 Wound - Leg, Left Wound Culture - Final Staphylococcus aureus 11/22/18 14:50 Blood Culture (Wb) - Right Forearm Blood Culture - Preliminary No growth in 48 hours. 11/22/18 14:40 Blood Culture (Wb) - Anticubital Right Blood Culture - Preliminary No growth in [address] Jimenez Chilel-general surgery Operations: None Procedures: - - Incision and drainage of abscess left lower extremity Summary of Care Provided: The patient is a 33-year-old male with no significant past medical history other than morbid obesity and tobacco dependence who presented to the emergency department at [facility] on 11/22/2018 complaining of left leg swelling associated with pain and redness for the preceding 3 days. Vital signs of presentation to the emergency room were temperature 98.1, pulse rate 96, blood pressure 142/85, respiratory rate 14 and he was 97-100% saturated on room air. White blood cell count was elevated at 13.2 with 71% neutrophils. Hemoglobin and platelets were within normal limits. BMP was unremarkable. Random glucose was 129. A PCR on wound drainage was positive for staph aureus but negative for MRSA. Hemoglobin A1c is 6.0. He had an I&D in the ED. He was admitted to the hospital and started on Ancef. Dr. Chilel was consulted. Wound culture grew a methicillin sensitive staph aureus. Blood cultures had no growth. Dressings were changed daily by Dr. Chilel and the packing was replaced. He was afebrile for the duration of his hospital stay. On 11/24/2018 the white blood cell count was normal at 9.8 with a normal differential. Dr. Chilel recommended 1 more day of IV antibiotics. He was discharged home on 11/25/2018 with a prescription for cefadroxil 1 g, #12 tabs, 1 twice daily until gone, ibuprofen and Percocet No. 20 5 tablets 5/325. He will follow-up with Dr. Chilel towards the end of the week. Smoking cessation counseling was given and weight loss was advised. Patient denied pain on the date of discharge There was less swelling and less erythema of the left distal lower extremity. There was no purulent discharge expressed from the wound Warmth to touch had resolved. This note was generated with [employer] dictation software. It may contain incorrect words, spelling, and punctuation that were not noted in checking the note before signing. - Physical Exam Vital Signs Temp Pulse Resp BP Pulse Ox 97.9 F 81 18 151/87 H 98 11/25/18 08:21 11/25/18 08:21 11/25/18 08:21 11/25/18 08:21 11/25/18 08:21 Oxygen Delivery Method Room Air Weight: 344 lb 5.793 oz Body Mass Index (BMI) 44.1 Intake and Output for Last 24 Hours 11/23/18 11/24/18 11/25/18 23:59 23:59 23:59 Intake Total 3383 / 3383 2290 / 2290 1230 / 1230 Balance 3383 / 3383 2290 / 2290 1230 / 1230 Microbiology Past 72 Hours 11/22/18 13:15 Gram Stain - Final Wound - Leg, Left Wound Culture - Final Staphylococcus aureus 11/22/18 14:50 Blood Culture - Preliminary Blood Culture (Wb) - Right Forearm No growth in 48 hours. 11/22/18 14:40 Blood Culture - Preliminary Blood Culture (Wb) - Anticubital Right No growth in 48 hours. POC Glucose 11/24/18 11:35 POC Glucose 122 H Discharge Activity: May not drive while taking narcotic pain medications., - - [place] will need to keep the Left leg elevated as much as possible for the next week Return to work on:: 12/02/18 May resume sexual activity in: No Restrictions Weight Bearing Status: Full weight bearing Keep extremity elevated above heart level: Left Leg Call your doctor if your incision/area has: Sudden Increased Bleeding, Increased Pain/ Swelling, Increased Redness, Foul Smelling Discharge Call your doctor if you observe: Fever of 101 or Higher, Uncontrolled pain, - - Call your PCP if severe diarrhea ( > 5 stools a day), painful sores in the mouth, painful swallowing, rash or itching. Taking a probiotic such as Lactobacillus or Kefir can help with loose stools while taking antibiotics. Home Medications: Medications to take at Discharge Cefadroxil 1 gm PO BID #12 tab 11/25/18 Ibuprofen [Motrin] 600 mg PO Q8 #30 tab 11/25/18 Oxycodone HCl/Acetaminophen [Percocet 5/325] 1 - 2 tab PO Q6H PRN PRN 7 Days #25 tab 11/25/18 Following Prescrptions Were Given to Patient: Oxycodone HCl/Acetaminophen [Percocet 5/325] 1 - 2 tab PO Q6H PRN PRN 7 Days #25 tab PRN Reason: Pain Ibuprofen [Motrin] 600 mg PO Q8 #30 tab Cefadroxil 1 gm PO BID #12 tab Primary Care Physician: Care Physician,No Primary [Primary Care Provider] - Patient Instructions: Losing Weight, Weight Management: Getting Started, Weight Management: Healthy Eating, Weight Management: Fact and Fiction, Finding Your [place] Weight Minutes spent on discharge:: 30 Patient Condition:: Good Medical Necessity - Tobacco Use Smoking Status: Current every day smoker Tobacco Use: Cigarettes Meaningful Use Info Meaningful Use Diagnoses (Choose all that apply): None applicable Code Visit Inpatient E&M: 91931 Disch Hosp
--- NOTE | 2018-11-25 10:21 | CASEMGMT ---
Social Work Note Pt is listed as self-pay. SW reviewed notes and per RN CM pt recently changed jobs and has to wait 90 days for insurance at new job. PFS did see pt and pt will be arranging payment plan for hospital visit. Micki Mooney MSW, BEHAVIORAL HEALTH SPECIALIST
== END 2018-11-25 10:55 | disposition home or self-care (01) | DRG 603 ==
LOC: ED 12:19 → MS3 11-23 06:40
PROVIDERS: Surgery; Admitting Provider Internal Medicine; Emergency Provider Emergency Medicine; Visit Provider Internal Medicine
DX: L02.416 Cutaneous abscess of left lower limb (principal); Z68.41 Body mass index [BMI] 40.0-44.9, adult; L03.116 Cellulitis of left lower limb; E66.01 Morbid (severe) obesity due to excess calories; F17.200 Nicotine dependence, unspecified, uncomplicated; B95.61 Methicillin susceptible Staphylococcus aureus infection as the cause of diseases classified elsewhere
CPT/HCPCS: 36415; 73590; 80048; 82962; 83036; 85025; 87040; 87070; 87077; 87186; 87205; 87640; 97802; 99284; 99406; J7030; J7040; A4216

== ENCOUNTER 2021-07-26 14:57 | Outpatient (CLI) | payer MEDICARE, SELFPAY ==
[2021-07-26] MEDS: 0.9% Saline Lock 10 ML Syringe IV (15:33)
[2021-07-26 15:34] VITALS: BP 148/85; PULSE 100; RESP 16; TEMP 36.9; O2SAT 98; BMI 47.0
[2021-07-26 16:00] VITALS: BP 142/73; PULSE 88; RESP 16; TEMP 36.7; O2SAT 96
[2021-07-26 16:47] VITALS: BP 137/81; PULSE 89; RESP 16; TEMP 37; O2SAT 97
== END 2021-07-26 17:00 | disposition home or self-care (01) ==
LOC: MS3OUT 14:57 → MS3 14:57
PROVIDERS: Referring Provider Nurse Practitioner Adult Health; Visit Provider Nurse Practitioner Adult Health
DX: Z23 Encounter for immunization (principal); U07.1 COVID-19
CPT/HCPCS: J7050; M0243; A4216; Q0244